=== PATIENT | female | born 1945 | race Caucasian/White ===

== ENCOUNTER → 2021-05-24 | Outpatient (CLI) | payer BC ==
[~2021-05-24] MED LIST: CATAPRES 0.1MG0.1 MG PO
== END ==
LOC: RAD 12:57
DX: R05.9 Cough, unspecified (principal); R91.8 Other nonspecific abnormal finding of lung field
CPT/HCPCS: 71046

== ENCOUNTER → 2021-07-26 | Outpatient (CLI) | payer BC | LOC: RAD 11:09 | DX: J18.9 Pneumonia, unspecified organism (principal) | CPT/HCPCS: 71046 ==

== ENCOUNTER 2021-11-10 04:17 | Emergency (ER) | payer BC ==
[2021-11-10 04:58] LABS: HEMOGLOBIN 13.1 gm/dl (12.3-15.3); RED BLOOD COUNT 4.09 M/UL (4.00-5.10)
== END 2021-11-10 05:39 | disposition home or self-care (01) ==
LOC: ER1 04:17
PROVIDERS: Physician Assistant
DX: I10 Essential (primary) hypertension (principal); R05.9 Cough, unspecified; J45.909 Unspecified asthma, uncomplicated; Z90.49 Acquired absence of other specified parts of digestive tract; Z95.1 Presence of aortocoronary bypass graft; Z95.0 Presence of cardiac pacemaker
CPT/HCPCS: 71045; 80053; 82550; 82553; 84484; 85025; 93005; 99284

== ENCOUNTER 2021-11-27 16:58 | Emergency (ER) | payer BC ==
[2021-11-27 17:58] LABS: HEMOGLOBIN 12.6 gm/dl (12.3-15.3); RED BLOOD COUNT 3.92 M/UL (4.00-5.10); WHITE BLOOD COUNT 10.3 K/UL (4.5-11.0)
== END 2021-11-27 19:44 | disposition home or self-care (01) ==
LOC: ER1 16:58
PROVIDERS: Emergency Medicine
DX: I10 Essential (primary) hypertension (principal); R00.2 Palpitations; N28.9 Disorder of kidney and ureter, unspecified; Z90.89 Acquired absence of other organs; Z95.0 Presence of cardiac pacemaker
CPT/HCPCS: 0241U; 71045; 80053; 81001; 82550; 82553; 83735; 83880; 84439; 84443; 84484; 85025; 93005; 96374; 99285

== ENCOUNTER → 2021-11-29 | Outpatient (CLI) | payer BC | LOC: US 13:30 | DX: R42 Dizziness and giddiness (principal); I35.0 Nonrheumatic aortic (valve) stenosis; I10 Essential (primary) hypertension; R00.2 Palpitations; Z95.3 Presence of xenogenic heart valve | CPT/HCPCS: 93880 ==